=== PATIENT | male | born 1975 | race Caucasian/White ===

== ENCOUNTER 2021-04-11 12:39 | Inpatient (IN) | payer MEDICAID, SELFPAY ==
[2021-04-11] MEDS: nicotine 21 mg Patch 1 PATCH TRANSDERMA (13:26)
[2021-04-11 14:00] VITALS: BP 116/78; PULSE 104; RESP 18; TEMP 36.1; O2SAT 98
[2021-04-11 20:49] VITALS: BP 144/86; PULSE 89; RESP 17; TEMP 37; O2SAT 99
[2021-04-11] MEDS: OLANZapine 5 mg ODT PO (21:52)
[2021-04-11] MEDS: hyDROXYzine 25 mg Capsule 50 MG PO (21:52)
[2021-04-11] MEDS: trazodone 50 mg Tablet PO (21:52)
[2021-04-12 05:52] LABS: Glucose Point of Care 115 mg/dL (70-110)
[2021-04-12 05:56] VITALS: BP 118/71; PULSE 58; RESP 16; TEMP 36.7; O2SAT 98
--- NOTE | 2021-04-12 05:56 | PC.NURSE ---
charge nurse and FAMILY PRACTICE PHYSICIAN verbally notified of pt's blood glucose of 115
[2021-04-12] MEDS: acetaminophen 325 mg Tablet 650 MG PO (08:59)
--- NOTE | 2021-04-12 11:22 | P.NPUHP_ITS ---
Providers/Chief Complaint Admitting Physician: Schuyler Collins MD Chief Complaint: HALLUCINATING HPI NPU History of Present Illness JOANNA GRUBBS is a 45 year old male who presented to the outside hospital endorsing being off of his medication and having suicidal thoughts. He denies ever being psychiatrically hospitalized but has had outpatient services in [place]. He reports the medications have been helpful but that for reasons that lacked clarity he stopped taking his medications probably about 2 or more months ago. He reports with the discontinuation of medication his depression and anxiety have returned and he started having thoughts to harm himself. He denies any history of suicide attempts. He reports he smokes about a pack and 1/2 to 2 packs of cigarettes a day, denies alcohol marijuana or any other illicit drugs. He reports he has used on the past but denies major issues with addiction. He denies any history of drug rehab and has never had a DUI/DWI. He reports that his discontinuation of medication now he thinks of it had a lot to do with him starting to have some nausea and other symptoms that he was attributing to his medication so he stopped the medication but he later found out that he likely was on too high of a pain patch or patch that was prescribed by his doctor and he went all that time without his medication and now is in a situation where he does not know how to get it restarted. He said that his anxiety has been fairly problematic he generally struggles being in social settings and now that his [id number] he reports that he had low mood feelings of helplessness and hopelessness, sleep difficulties etc. He endorsed getting to a point he was wishing he did not wake up. We discussed the risk benefits alternatives of restarting his Remeron and BuSpar as far as his psychiatric medications at lower doses that he had previously with a plan to assist him in getting follow-up moving forward. Psychiatric history: As above. Substance abuse history: As above. Family history: He endorses mental health issues in both sides of the family, he denies addiction or suicide attempt or completions on either side of his family. Developmental history: He denies any issues with his or delivery, or to walk or talk about his development milestones on time, going off to school he did need speech therapy and learning support. Psychosocial history: He reports his parents were together when he was born and that he has a younger brother that is a product of that union. He reports his mother has a daughter that is his half sibling and is unaware of his father having other children. He reports his childhood was good and denied emotional physical or sexual abuse endorses graduating high school but denies any college endorsed being heterosexual with long relationship being 15 years reports he was 2 times and once and is currently , he reports he has 1 child, he is never been in the and endorses being a Jehovah'S Witness. He reports his lungs appointment 15 years and he currently lives in an apartment. Legal history: Denied. Medical history: He endorses diabetes, hypertension, high cholesterol and overactive bladder. Meds NPU Home Medications Medication Instructions Recorded Confirmed Last Taken Type hydroxyzine HCl 25 mg PO QID 04/11/21 04/11/21 Unknown History albuterol sulfate 2 puff INHALATION Q4H PRN 04/12/21 04/12/21 Unknown History aspirin 81 mg PO DAILY 04/12/21 04/12/21 Unknown History atorvastatin 40 mg PO DAILY 04/12/21 04/12/21 Unknown History baclofen 10 mg PO TID PRN 04/12/21 04/12/21 Unknown History buprenorphine 1 patch TRANSDERMAL Q7D 04/12/21 04/12/21 Unknown History buspirone 30 mg PO BID 04/12/21 04/12/21 Unknown History carbamazepine 400 mg PO BID 04/12/21 04/12/21 Unknown History celecoxib 200 mg PO DAILY 04/12/21 04/12/21 Unknown History cetirizine 10 mg PO DAILY 04/12/21 04/12/21 Unknown History clonazepam 0.5 mg PO DAILY 04/12/21 04/12/21 Unknown History cyanocobalamin (vitamin B-12) 50 mcg PO DAILY 04/12/21 04/12/21 Unknown History dapagliflozin 10 mg PO DAILY 04/12/21 04/12/21 Unknown History duloxetine 30 mg PO DAILY 04/12/21 04/12/21 Unknown History ergocalciferol (vitamin D2) 1,250 mcg PO Q7D 04/12/21 04/12/21 Unknown History fluticasone propionate 2 spray INTRANASAL DAILY 04/12/21 04/12/21 Unknown History insulin detemir U-100 8 unit SUBCUT DAILY 04/12/21 04/12/21 Unknown History ketoconazole-pyrithione zinc 1 ea TOPICAL DAILY 04/12/21 04/12/21 Unknown History lisinopril 40 mg PO DAILY 04/12/21 04/12/21 Unknown History metoprolol tartrate 37.5 mg PO BID 04/12/21 04/12/21 Unknown History mirtazapine [Remeron] 30 mg PO BEDTIME 04/12/21 04/12/21 Unknown History naloxone 1 spray INTRANASAL ONCE 04/12/21 04/12/21 Unknown History pantoprazole 40 mg PO BID 04/12/21 04/12/21 Unknown History primidone 150 mg PO BID 04/12/21 04/12/21 Unknown History tamsulosin 0.4 mg PO BEDTIME 04/12/21 04/12/21 Unknown History tiotropium-olodaterol 2 puff INHALATION DAILY 04/12/21 04/12/21 Unknown History Allergies Allergy/AdvReac Type Severity Reaction Status Date / Time adhesive tape Allergy ALGY-Rash Verified 04/12/21 03:33 levofloxacin Allergy ALGY-Hives Verified 04/12/21 03:33 sulfamethoxazole Allergy ALGY-Hives Verified 04/12/21 03:33 trimethoprim Allergy ALGY-Hives Verified 04/12/21 03:33 PFSH NPU PFSH: Family History (Updated 04/12/21 @ 03:49 by Catalina Nolasco LPN) Grandfather Congestive heart failure Grandfather Diabetes mellitus, type 2 Social History (Updated 04/12/21 @ 03:53 by Catalina Nolasco LPN) Smoking and tobacco status: current every day smoker Alcohol intake: never Highest education level completed: High School Graduate Current occupational status: disabled Sexually active: Yes Current gender identity: Male Mental Status Exam MSE Comments: This is a slender white male and hospital scrubs with limited grooming and adequate eye contact. No abnormal movements except for mild psychomotor retardation. Cooperative with exam in no acute distress. Speech was slightly decreased rate normal volume. Mood described as okay but not great, affect subdued. Thought process organized. Thought content: Patient denied suicidal or homicidal ideation, no delusions reported noted, he denied any auditory visualizations. Attention and concentration were intact and memory a ppeared viable but none were formally tested. He is alert and oriented x3. Insight and judgment appeared fair impulse control was limited. Vitals/I&O/Wt Last Vital Signs Temp 98.1 F 04/12/21 05:56 Pulse 58 L 04/12/21 05:56 Resp 16 04/12/21 05:56 BP 118/71 04/12/21 05:56 Pulse Ox 98 04/12/21 05:56 Weight last 48 hrs Weight 67.132 kg Weight 65.771 kg A&P Assessment and plan (1) Anxiety: Status: Acute (2) Major depressive disorder, recurrent: Status: Acute Additional A&P Information This is a 45-year-old white male with a long history of mental health and a past history of addiction issues who presents off his medication for couple months with increasing depression anxiety and some thoughts of self-harm with open to getting medications restarted an appropriate way. 1. Continue current medication. Restart Remeron at 50 mg p.o. nightly and BuSpar 50 mg p.o. twice daily. We will restart his hypertension, high cholesterol and diabetes medications at appropriate doses. 2. Continue every 15 minute checks for safety. 3. Encourage individual, group and milieu therapies. Involuntary Hold Information 96 Hour Hold: 96 Hour Involuntary Admission: No Attestations NPU Medical Necessity Statement*: Inpatient hospitalization is medically necessary and the clinically appropriate intervention at this time. We will monitor medication to make changes as indicated. Likely length of stay 3 to 5 days. Coding Level of Care Code Acute Certified Retinal Angiographer for Constantin Whalen Diagnoses Anxiety F41.9 Major depressive disorder, recurrent F33.9
--- NOTE | 2021-04-12 11:52 | NPU.GN ---
[facility] Topic:Grounding Thoughts, Coping Skills General Mood of Group: Xu did very well and attended group today. Xu was social and in a good mood today.
[2021-04-12] MEDS: nicotine 21 mg Patch 1 PATCH TRANSDERMA (13:44)
[2021-04-12 14:00] VITALS: BP 130/88; PULSE 86; RESP 17; TEMP 36.6; O2SAT 100
[2021-04-12 20:33] VITALS: RESP 16
[2021-04-12 21:20] LABS: Glucose Point of Care 171 mg/dL (70-110)
[2021-04-13 06:00] VITALS: BP 126/85; PULSE 91; RESP 16; O2SAT 97
[2021-04-13 07:44] LABS: Glucose Point of Care 138 mg/dL (70-110)
[2021-04-13] MEDS: fluticasone nasal spray 16gm Btl 2 SPRAY INTRANASAL (09:16)
[2021-04-13] MEDS: pantoprazole DR 40 mg Tablet PO ×2 (09:17→17:51)
[2021-04-13] MEDS: aspirin 81 mg Chew Tablet PO (09:17)
[2021-04-13] MEDS: duloxetine 30 mg Capsule PO (09:18)
[2021-04-13] MEDS: atorvastatin 40 mg Tablet PO (09:18)
[2021-04-13] MEDS: BuSPIRONE 10 mg Tablet 15 MG PO ×2 (09:18→17:51)
[2021-04-13] MEDS: metoprolol tartrate 25 mg Tablet PO ×2 (09:25→20:58)
[2021-04-13] MEDS: acetaminophen 325 mg Tablet 650 MG PO (09:59)
--- NOTE | 2021-04-13 12:56 | NPU.GN ---
[facility] Topic: Self Care Bingo/ Crisis Plan Work Sheet General Mood of Group: Xu did attend and participate in group today. His demeanour was good and he was social in group.
[2021-04-13 14:00] VITALS: BP 119/74; PULSE 72; RESP 17; TEMP 36.8; O2SAT 97
[2021-04-13] MEDS: nicotine 21 mg Patch 1 PATCH TRANSDERMA (14:05)
--- NOTE | 2021-04-13 16:31 | W.PM.NPUPNS ---
Subjective NPU Subjective: Interval history: Patient presents today reporting that he feels like is doing better with the restarting of his medications. He reports that he is missing his family and is hopeful that is not allowed to stay more than a couple more days. He clearly was focused on getting his medications restarted and now feels optimistic that everything will fall into place. He reports he is eating okay and sleeping better. Mental Status Exam MSE Comments: This is a slender white male and hospital scrubs with limited grooming and adequate eye contact. No abnormal movements except for mild psychomotor retardation. Cooperative with exam in no acute distress. Speech was slightly decreased rate normal volume. Mood described as a little better, affect less subdued. Thought process organized. Thought content: Patient denied suicidal or homicidal ideation, no delusions reported noted, he denied any auditory visualizations. Attention and concentration were intact and memory appeared viable but none were formally tested. He is alert and oriented x3. Insight and judgment appeared fair impulse control was limited. Vitals/I&O/Wt Last Vital Signs Temp 98.2 F 04/13/21 14:00 Pulse 86 04/13/21 14:00 Resp 17 04/13/21 14:00 BP 130/88 04/13/21 14:00 Pulse Ox 100 04/13/21 14:00 A&P Additional A&P Information (1) Anxiety: (2) Major depressive disorder, recurrent: Additional A&P Information This is a 45-year-old white male with a long history of mental health and a past history of addiction issues who presents off his medication for couple months with increasing depression anxiety and some thoughts of self-harm with open to getting medications restarted an appropriate way. 1. Continue current medication. Restart Remeron at 15 mg p.o. nightly and BuSpar 15 mg p.o. twice daily 04/12/21. 2. Continue every 15 minute checks for safety. 3. Encourage individual, group and milieu therapies. Involuntary Hold Information 96 Hour Hold: 96 Hour Involuntary Admission: No Attestations NPU Medical Necessity Statement*: Inpatient hospitalization is medically necessary and the clinically appropriate intervention at this time. We will monitor medication to make changes as indicated. Likely length of stay 1-4 days. Coding Level of Care Code Acute Gizzard Peeler for Constantin Whalen
[2021-04-13] MEDS: mirtazapine 15 mg Tablet PO (20:58)
[2021-04-13 22:00] VITALS: RESP 15
[2021-04-13 22:42] LABS: Glucose Point of Care 132 mg/dL (70-110)
[2021-04-14] MEDS: acetaminophen 325 mg Tablet 650 MG PO (05:29)
[2021-04-14 06:00] VITALS: BP 119/79; PULSE 96; RESP 17; O2SAT 100
[2021-04-14] MEDS: duloxetine 30 mg Capsule PO (08:25)
[2021-04-14] MEDS: metoprolol tartrate 25 mg Tablet PO ×2 (08:25→20:53)
[2021-04-14] MEDS: atorvastatin 40 mg Tablet PO (08:26)
[2021-04-14] MEDS: BuSPIRONE 10 mg Tablet 15 MG PO ×2 (08:26→17:33)
[2021-04-14] MEDS: aspirin 81 mg Chew Tablet PO (08:26)
[2021-04-14] MEDS: pantoprazole DR 40 mg Tablet PO ×2 (08:26→17:33)
--- NOTE | 2021-04-14 12:32 | NPU.GN ---
[facility] Topic:Positive Thinking / Positive Affirmations General Mood of Group: Xu did attend and participate in group. He was social with others and shared some insite with the group based on his past experiences and how to turn it into a positive.
[2021-04-14 13:59] VITALS: BP 124/80; PULSE 69; RESP 17; TEMP 36.9; O2SAT 99
[2021-04-14] MEDS: nicotine 21 mg Patch 1 PATCH TRANSDERMA (14:13)
[2021-04-14 16:15] LABS: Glucose Point of Care 139 mg/dL (70-110)
--- NOTE | 2021-04-14 16:21 | W.PM.NPUPNS ---
Subjective NPU Subjective: Interval history: Patient presents today reporting that he has feeling less concerned about his ability to manage himself now he is back on his medication. He has some concerns about sleep but otherwise reports that he is feeling fine. We discussed the plan for discharge tomorrow which he was very pleased about and reports that he is eating fine and denies any side effects. Mental Status Exam MSE Comments: This is a slender white male and hospital scrubs with limited grooming and adequate eye contact. No abnormal movements except for mild psychomotor retardation. Cooperative with exam in no acute distress. Speech was more normal rate normal volume. Mood described as better, affect less subdued. Thought process organized. Thought content: Patient denied suicidal or homicidal ideation, no delusions reported noted, he denied any auditory visualizations. Attention and concentration were intact and memory appeared viable but none were formally tested. He is alert and oriented x3. Insight and judgment appeared fair impulse control was limited. Vitals/I&O/Wt Last Vital Signs Temp 98.2 F 04/14/21 20:38 Pulse 76 04/14/21 20:38 Resp 17 04/14/21 20:38 BP 126/77 04/14/21 20:38 Pulse Ox 98 04/14/21 20:38 A&P Additional A&P Information (1) Anxiety: (2) Major depressive disorder, recurrent: Additional A&P Information This is a 45-year-old white male with a long history of mental health and a past history of addiction issues who presents off his medication for couple months with increasing depression anxiety and some thoughts of self-harm with open to getting medications restarted an appropriate way. 1. Continue current medication. 2. Continue every 15 minute checks for safety. 3. Encourage individual, group and milieu therapies. Involuntary Hold Information 96 Hour Hold: 96 Hour Involuntary Admission: No Attestations NPU Medical Necessity Statement*: Inpatient hospitalization is medically necessary and the clinically appropriate intervention at this time. We will monitor medication to make changes as indicated. Likely length of stay 1-2 days. Coding Level of Care Code Acute Cafeteria Counter Attendant for Constantin Whalen
[2021-04-14 20:38] VITALS: BP 126/77; PULSE 76; RESP 17; TEMP 36.8; O2SAT 98
[2021-04-14] MEDS: mirtazapine 15 mg Tablet PO (20:53)
[2021-04-14] MEDS: trazodone 50 mg Tablet PO (20:54)
[2021-04-15] MEDS: acetaminophen 325 mg Tablet 650 MG PO (05:45)
[2021-04-15 06:00] VITALS: BP 132/81; PULSE 109; RESP 18; TEMP 36.6; O2SAT 100
[2021-04-15 08:49] LABS: Glucose Point of Care 148 mg/dL (70-110)
[2021-04-15] MEDS: aspirin 81 mg Chew Tablet PO (08:59)
[2021-04-15] MEDS: pantoprazole DR 40 mg Tablet PO ×2 (08:59→17:50)
[2021-04-15] MEDS: nicotine 21 mg Patch 1 PATCH TRANSDERMA (08:59)
[2021-04-15] MEDS: duloxetine 30 mg Capsule PO (09:00)
[2021-04-15] MEDS: atorvastatin 40 mg Tablet PO (09:00)
[2021-04-15] MEDS: metoprolol tartrate 25 mg Tablet PO (09:01)
[2021-04-15] MEDS: BuSPIRONE 10 mg Tablet 15 MG PO ×2 (09:01→17:50)
--- NOTE | 2021-04-15 10:45 | NPU.GN ---
[facility] Topic: Good Secrets Vs. Bad Secrets Psycho Therapy General Mood of Group: Xu did attend and participate in group today.
--- NOTE | 2021-04-15 13:56 | W.PM.NPUDCS ---
Diagnoses at Discharge Discharge Diagnosis (1) Anxiety: Status: Acute (2) Major depressive disorder, recurrent: Status: Acute Reason for Visit Reason for Visit: HALLUCINATING Brief History: History of Present Illness JOANNA GRUBBS is a 45 year old male who presented to the outside hospital endorsing being off of his medication and having suicidal thoughts. He denies ever being psychiatrically hospitalized but has had outpatient services in [place]. He reports the medications have been helpful but that for reasons that lacked clarity he stopped taking his medications probably about 2 or more months ago. He reports with the discontinuation of medication his depression and anxiety have returned and he started having thoughts to harm himself. He denies any history of suicide attempts. He reports he smokes about a pack and 1/2 to 2 packs of cigarettes a day, denies alcohol marijuana or any other illicit drugs. He reports he has used on the past but denies major issues with addiction. He denies any history of drug rehab and has never had a DUI/DWI. He reports that his discontinuation of medication now he thinks of it had a lot to do with him starting to have some nausea and other symptoms that he was attributing to his medication so he stopped the medication but he later found out that he likely was on too high of a pain patch or patch that was prescribed by his doctor and he went all that time without his medication and now is in a situation where he does not know how to get it restarted. He said that his anxiety has been fairly problematic he generally struggles being in social settings and now that his [id number] he reports that he had low mood feelings of helplessness and hopelessness, sleep difficulties etc. He endorsed getting to a point he was wishing he did not wake up. We discussed the risk benefits alternatives of restarting his Remeron and BuSpar as far as his psychiatric medications at lower doses that he had previously with a plan to assist him in getting follow-up moving forward. Psychiatric history: As above. Substance abuse history: As above. Family history: He endorses mental health issues in both sides of the family, he denies addiction or suicide attempt or completions on either side of his family. Developmental history: He denies any issues with his or delivery, or to walk or talk about his development milestones on time, going off to school he did need speech therapy and learning support. Psychosocial history: He reports his parents were together when he was born and that he has a younger brother that is a product of that union. He reports his mother has a daughter that is his half sibling and is unaware of his father having other children. He reports his childhood was good and denied emotional physical or sexual abuse endorses graduating high school but denies any college endorsed being heterosexual with long relationship being 15 years reports he was 2 times and once and is currently , he reports he has 1 child, he is never been in the and endorses being a Protestant. He reports his lungs appointment 15 years and he currently lives in an apartment. Legal history: Denied. Medical history: He endorses diabetes, hypertension, high cholesterol and overactive bladder. Hospital Course Hospital Course He quickly acclimated to the individual, group and milieu therapies provided. He had not been taking his medication and we restart his Remeron and BuSpar at 15 mg p.o. nightly and 15 mg p.o. twice daily respectively and he had modest improvement. He was able to contract for safety outside of the hospital prior to discharge. At the outside hospital, patient had routine laboratory studies which were within normal limits except for few outliers. Additionally there was a general medical evaluation which was also within normal limits and revealed no new acute processes. Discharge Summary: At the time of discharge, he denied psychosis or lethality. Mood and anxiety were well managed. Patient endorsed a plan to avoid all drugs of abuse and follow-up with the aftercare recommendations of the treatment team. Patient was evaluated and deemed to be absent credible lethality, and had achieved the maximum benefit from an inpatient hospitalization, so was discharged. Involuntary Hold Information 96 Hour Hold: 96 Hour Involuntary Admission: No Mental Status Exam MSE Comments: This is a slender white male and hospital scrubs with adequate grooming and eye contact. No abnormal movements. Cooperative with exam in no acute distress. Speech was more normal rate normal volume. Mood described as better, affect less subdued. Thought process organized. Thought content: Patient denied suicidal or homicidal ideation, no delusions reported noted, he denied any auditory visualizations. Attention and concentration were intact and memory appeared viable but none were formally tested. He is alert and oriented x3. Insight and judgment appeared fair impulse control was limited. Discharge Data Data Completed and Pending: Labs from last 24 hours 04/15/21 04/14/21 08:33 16:12 POC Glucose 148 H 139 H Vitals: Last Vital Signs Temp 97.9 F 04/15/21 06:00 Pulse 109 H 04/15/21 06:00 Resp 18 04/15/21 06:00 BP 132/81 04/15/21 06:00 Pulse Ox 100 04/15/21 06:00 Discharge Plan Discharge Patient Disposition: Home Condition: Stable Prescriptions: New buspirone 10 mg Tablet 15 mg PO BID 30 Days Qty: 90 RF: 1 lisinopril 10 mg Tablet 10 mg PO DAILY 30 Days Qty: 30 RF: 1 mirtazapine 15 mg Tablet 15 mg PO BEDTIME 30 Days Qty: 30 RF: 1 metoprolol tartrate 25 mg Tablet 25 mg PO BID@0900,2100 30 Days Qty: 60 RF: 1 Continued ketoconazole-pyrithione zinc 2-1 % Kit 1 ea TOPICAL DAILY RF: 0 fluticasone propionate 50 mcg/actuation [place],Suspension 2 spray INTRANASAL DAILY RF: 0 atorvastatin 40 mg Tablet 40 mg PO DAILY 30 Days Qty: 30 RF: 1 pantoprazole 40 mg Tablet,Delayed Release (Dr/Ec) 40 mg PO BID 30 Days Qty: 60 RF: 1 aspirin 81 mg Tablet,Chewable 81 mg PO DAILY 30 Days Qty: 30 RF: 1 duloxetine 30 mg Capsule,Delayed Release(Dr/Ec) 30 mg PO DAILY 30 Days Qty: 30 RF: 1 Discontinued hydroxyzine HCl 25 mg Tablet 25 mg PO QID RF: 0 primidone 50 mg Tablet 150 mg PO BID RF: 0 cyanocobalamin (vitamin B-12) 50 mcg Tablet 50 mcg PO DAILY RF: 0 tiotropium-olodaterol 2.5-2.5 mcg/actuation Mist 2 puff INHALATION DAILY RF: 0 clonazepam 0.5 mg Tablet 0.5 mg PO DAILY RF: 0 ergocalciferol (vitamin D2) 1,250 mcg (50,000 unit) Capsule 1,250 mcg PO Q7D RF: 0 albuterol sulfate 90 mcg/actuation Hfa Aerosol Inhaler 2 puff INHALATION Q4H PRN (Reason: Shortness Of Breath Or Wheezing) RF: 0 naloxone 4 mg/actuation [place],Non-Aerosol 1 spray INTRANASAL ONCE RF: 0 celecoxib 200 mg Capsule 200 mg PO DAILY RF: 0 cetirizine 10 mg Tablet 10 mg PO DAILY RF: 0 carbamazepine 400 mg Tablet Extended Release 12 Hr 400 mg PO BID RF: 0 tamsulosin 0.4 mg Capsule 0.4 mg PO BEDTIME RF: 0 baclofen 10 mg Tablet 10 mg PO TID PRN (Reason: Spasms) RF: 0 mirtazapine [Remeron] 30 mg Tablet 30 mg PO BEDTIME RF: 0 buspirone 30 mg Tablet 30 mg PO BID RF: 0 lisinopril 40 mg Tablet 40 mg PO DAILY RF: 0 insulin detemir U-100 100 unit/mL Solution 8 unit SUBCUT DAILY RF: 0 buprenorphine 10 mcg/hour Patch Weekly 1 patch TRANSDERMAL Q7D RF: 0 dapagliflozin 10 mg Tablet 10 mg PO DAILY RF: 0 metoprolol tartrate 37.5 mg Tablet 37.5 mg PO BID RF: 0 Discharge Orders: Discharge Order (Routine); Ordered 04/15/21 Ordered By: Schuyler Collins [facility] [Other[facility] (for parts chaser services) Pilar Mcfarlane - Clinical Special Loan OfficerEric [Other] - 05/04/21 10:00 am [facility] Baker [Other] - 05/18/21 12:00 pm Discharge Diet: Regular Discharge Activity: Resume usual activity Patient Instructions: Generalized Anxiety Disorder, Depression, Opioid Safety Discharge Attestations NPU Time Spent in Discharge Care*: greater than 30 min Specific Discharge Activities: Specific discharge activities: educating patient, discussing with case management director/social workers/dc planners, documenting/other paperwork and evaluating patient/reviewing data Coding Level of Care Code Acute Chg FW DC note Diagnoses Anxiety F41.9 Major depressive disorder, recurrent F33.9
[2021-04-15 14:00] VITALS: BP 132/81; PULSE 109; RESP 18; TEMP 36.6; O2SAT 100
[2021-04-15 14:14] VITALS: BP 132/81; PULSE 109; RESP 18; TEMP 36.6; O2SAT 100
[2021-04-15 20:31] VITALS: BP 160/98; PULSE 97; RESP 18; TEMP 36.7; O2SAT 100
== END 2021-04-15 20:30 | disposition home or self-care (01) | DRG 885 ==
PROVIDERS: Admitting Provider Psychiatry & Neurology Psychiatry; Visit Provider Psychiatry & Neurology Psychiatry
DX: F33.9 Major depressive disorder, recurrent, unspecified (principal); R45.851 Suicidal ideations; F41.9 Anxiety disorder, unspecified; Z91.128 Patient's intentional underdosing of medication regimen for other reason; F17.210 Nicotine dependence, cigarettes, uncomplicated; E11.9 Type 2 diabetes mellitus without complications; I10 Essential (primary) hypertension; Z79.82 Long term (current) use of aspirin
CPT/HCPCS: 36416; 82962; 97150; 97165